=== PATIENT | male | born 1995 | race Caucasian/White ===

== ENCOUNTER 2018-02-05 08:52 | Emergency (ER) | payer MEDICAID ==
[~2018-02-05] VITALS: Ht 177.8 cm; Wt 81.6 kg
[2018-02-05 08:55] VITALS: Ht 177.8 cm; Wt 81.6 kg
[2018-02-05 10:25] VITALS: BP 121/82
== END 2018-02-05 10:25 | disposition home or self-care (01) ==
LOC: ED 08:52
DX: J02.9 Acute pharyngitis, unspecified (principal); R11.10 Vomiting, unspecified
CPT/HCPCS: J0561

== ENCOUNTER 2018-02-07 09:57 | Emergency (ER) | payer MEDICAID ==
[~2018-02-07] VITALS: Ht 177.8 cm; Wt 79.4 kg
[2018-02-07 10:10] VITALS: BP 144/71; Ht 177.8 cm; Wt 79.4 kg
[2018-02-07 11:23] LABS: BASOPHIL % 0.1 % (0-2); PLATELET COUNT 241 x10^3mcL (130-400); RED CELL DISTRIBUTION WIDTH 12.9 % (11.5-14.5)
[2018-02-07 11:31] LABS: CALCIUM 8.7 mg/dL (8.5-10.1); CARBON DIOXIDE 27.2 mmol/L (21-32); CHLORIDE SERUM 99 mmol/L (98-107); CREATININE SERUM 0.8 mg/dL (0.7-1.3); GFR1 > 60 mL/min; GLUCOSE SERUM 99 mg/dL (74-106); POTASSIUM SERUM 3.5 mmol/L (3.5-5.1); SODIUM SERUM 134 mmol/L (136-145)
[2018-02-07 11:45] LABS: AMPHETAMINE QUAL UR NONE DETECTED (See below)
== END 2018-02-07 12:47 | disposition home or self-care (01) ==
LOC: ED 09:57
PROVIDERS: Emergency Medicine
DX: J03.90 Acute tonsillitis, unspecified (principal); R51 Headache; R11.10 Vomiting, unspecified
CPT/HCPCS: 36415; 86308; J0696; Q0162

== ENCOUNTER 2020-01-28 20:50 | Emergency (ER) | payer MEDICAID ==
[~2020-01-28] VITALS: Ht 177.8 cm; Wt 86.2 kg
[2020-01-28 20:51] VITALS: BP 145/82; Ht 177.8 cm; Wt 86.2 kg
== END 2020-01-28 21:38 | disposition home or self-care (01) ==
LOC: ED 20:50
DX: J03.90 Acute tonsillitis, unspecified (principal)

== ENCOUNTER 2020-01-30 13:05 | Emergency (ER) | payer MEDICAID, SELFPAY ==
[~2020-01-30] VITALS: Ht 177.8 cm; Wt 86.2 kg
[2020-01-30 13:12] VITALS: Ht 177.8 cm; Wt 86.2 kg
[2020-01-30 15:27] VITALS: BP 127/71
== END 2020-01-30 15:27 | disposition home or self-care (01) ==
LOC: ED 13:05
DX: J03.90 Acute tonsillitis, unspecified (principal)
CPT/HCPCS: J2930; U0003-CS

== ENCOUNTER 2020-02-05 20:50 | Emergency (ER) | payer MEDICAID, SELFPAY ==
[~2020-02-05] VITALS: Ht 177.8 cm; Wt 88.0 kg
[2020-02-05 20:55] VITALS: Ht 177.8 cm; Wt 88.0 kg
[2020-02-05 21:40] VITALS: BP 131/84
== END 2020-02-05 21:40 | disposition home or self-care (01) ==
LOC: ED 20:50
DX: J02.9 Acute pharyngitis, unspecified (principal); Z20.828 Contact with and (suspected) exposure to other viral communicable diseases
CPT/HCPCS: U0003-CS